=== PATIENT | female | born 1940 | race Caucasian/White ===

== ENCOUNTER 2022-04-09 15:46 | Inpatient (IN) | payer MEDICARE ==
[~2022-04-09] VITALS: Ht 152.4 cm; Wt 53.2 kg
[2022-04-09 16:24] LABS: BASOPHILS % (AUTO) 0.7 % (0.0-5.0); EOSINOPHILS % (AUTO) 0.6 % (0.0-8.0); MEAN CORPUSCULAR HEMOGLOBIN 27.6 pg (27.0-33.0); MEAN CORPUSCULAR HGB CONC 31.9 g/dL (32.0-36.0); MEAN CORPUSCULAR VOLUME 86.5 fL (79-99); NEUTROPHILS % (AUTO) 64.3 % (40.0-77.0); PLATELET COUNT (AUTO) 306 K/uL (130-400); RED CELL DISTRIBUTION WIDTH 17.1 % (11.0-15.5); WHITE BLOOD COUNT (AUTO) 8.6 K/uL (4.8-10.8)
[2022-04-09 16:49] LABS: CREATININE 0.6 mg/dL (0.5-1.5); POTASSIUM 3.5 mmol/L (3.5-5.1)
[2022-04-09 16:54] LABS: ALBUMIN 1.6 g/dL (3.5-5.0); BILIRUBIN,TOTAL 0.2 mg/dL (0.2-1.0); TOTAL PROTEIN, SERUM 4.6 g/dL (6.0-8.3)
[2022-04-09 17:21] LABS: APPEARANCE,URINE CLEAR (CLEAR); BILIRUBIN,URINE NEGATIVE (NEGATIVE); COLOR,URINE YELLOW (YELLOW); GLUCOSE, URINE (UA) NEGATIVE (NEGATIVE); KETONES,URINE NEGATIVE (NEGATIVE); LEUKOCYTE ESTERASE ,URINE NEGATIVE (NEGATIVE); NITRATE,URINE NEGATIVE (NEGATIVE); OCCULT BLOOD,URINE NEGATIVE (NEGATIVE); PROTEIN,URINE NEGATIVE (NEGATIVE); UROBILINOGEN,URINE 0.2 mg/dL (0.2-1.0)
[2022-04-09] MEDS ORDERED: FAMOTIDINE 20MG VIAL IV ONE (19:00)
[2022-04-09] MEDS ORDERED: 0.9% NACL 500ML IV.SOLN 500 ML IV ONE (19:00)
[2022-04-09] MEDS ORDERED: ONDANSETRON 4MG INJ IVP ONE (19:00)
[2022-04-09] MEDS: LACTATED RINGERS 1000ML 1,000 ML IV SCH (21:30)
[2022-04-09] MEDS ORDERED: GUAIFENESIN-DM 200/20 MG 10 ML PO PRN (21:30)
[2022-04-09] MEDS ORDERED: HYDRALAZINE 20MG/ML VIAL IV PRN (21:30)
[2022-04-09] MEDS ORDERED: ONDANSETRON 4MG INJ IV PRN (21:30)
[2022-04-10 06:09] LABS: BASOPHILS % (AUTO) 1.1 % (0.0-5.0); EOSINOPHILS % (AUTO) 1.1 % (0.0-8.0); LYMPHOCYTES % (AUTO) 23.3 % (21.0-51.0); MEAN CORPUSCULAR HEMOGLOBIN 28.3 pg (27.0-33.0); MEAN CORPUSCULAR HGB CONC 32.9 g/dL (32.0-36.0); MEAN CORPUSCULAR VOLUME 86.1 fL (79-99); MONOCYTES % (AUTO) 14.1 % (3.0-13.0); NEUTROPHILS % (AUTO) 59.9 % (40.0-77.0); PLATELET COUNT (AUTO) 230 K/uL (130-400); WHITE BLOOD COUNT (AUTO) 5.6 K/uL (4.8-10.8)
[2022-04-10 06:20] LABS: CREATININE 0.5 mg/dL (0.5-1.5); POTASSIUM 3.5 mmol/L (3.5-5.1)
[2022-04-10 08:30] VITALS: BP 130/48
[2022-04-10] MEDS: LACTATED RINGERS 1000ML 1,000 ML IV SCH ×2 (09:37→09:45)
[2022-04-10] MEDS: FAMOTIDINE 20MG VIAL IV SCH ×2 (09:40→21:12)
[2022-04-10 12:11] VITALS: BP 139/64
[2022-04-10 15:15] VITALS: BP 130/57
[2022-04-10 20:00] VITALS: BP 126/60
[2022-04-11] VITALS: BP 132/63
[2022-04-11] MEDS: LACTATED RINGERS 1000ML 1,000 ML IV SCH (00:18)
[2022-04-11] MEDS ORDERED: AMLO-258 PO (04:27)
[2022-04-11] MEDS ORDERED: DONE5TAB33 PO (04:27)
[2022-04-11] MEDS ORDERED: FERR325T29 PO (04:27)
[2022-04-11] MEDS ORDERED: SERT-439 PO (04:27)
[2022-04-11] MEDS ORDERED: PRAV20TA4 PO (04:27)
[2022-04-11] MEDS ORDERED: CARV25TA PO (04:27)
[2022-04-11 04:51] VITALS: BP 126/62
[2022-04-11 05:25] LABS: BASOPHILS % (AUTO) 0.9 % (0.0-5.0); EOSINOPHILS % (AUTO) 1.4 % (0.0-8.0); HEMATOCRIT 28.7 % (36-48); LYMPHOCYTES % (AUTO) 22.5 % (21.0-51.0); MEAN CORPUSCULAR HEMOGLOBIN 27.4 pg (27.0-33.0); MEAN CORPUSCULAR HGB CONC 31.7 g/dL (32.0-36.0); MEAN CORPUSCULAR VOLUME 86.4 fL (79-99); MONOCYTES % (AUTO) 12.7 % (3.0-13.0); NEUTROPHILS % (AUTO) 61.8 % (40.0-77.0); PLATELET COUNT (AUTO) 244 K/uL (130-400); RED BLOOD CELL COUNT(AUTO) 3.32 MIL/uL (4.00-5.50); RED CELL DISTRIBUTION WIDTH 16.9 % (11.0-15.5); WHITE BLOOD COUNT (AUTO) 5.7 K/uL (4.8-10.8)
[2022-04-11 05:51] LABS: ALBUMIN 1.4 g/dL (3.5-5.0); BILIRUBIN,TOTAL 0.2 mg/dL (0.2-1.0); CREATININE 0.5 mg/dL (0.5-1.5); POTASSIUM 3.7 mmol/L (3.5-5.1)
[2022-04-11 08:00] VITALS: BP 136/40
== END 2022-04-11 11:45 | disposition home health service (06) | DRG 640 ==
LOC: EDH 15:46 → EDHIP 21:09 → 3DH 04-10 08:30
PROVIDERS: ADMIT Hospitalist; ATTEND Hospitalist
DX: E86.0 Dehydration (principal); E43 Unspecified severe protein-calorie malnutrition; E78.5 Hyperlipidemia, unspecified; I10 Essential (primary) hypertension; E78.00 Pure hypercholesterolemia, unspecified; R19.7 Diarrhea, unspecified; Z88.8 Allergy status to other drugs, medicaments and biological substances; Z68.22 Body mass index [BMI] 22.0-22.9, adult
CPT/HCPCS: 36415; 74176; 80048; 80053; 81003; 83880; 84484; 85025; 93005; 93970; G0378; J2405; J3490; J7040; J7120